=== PATIENT | male | born 1970 | race Caucasian/White ===

== ENCOUNTER 2017-05-16 17:12 | Inpatient (IN) | payer MEDICARE, MEDICAID ==
[2017-05-16] MEDS: Albuterol-Ipratrop 3 mg / 0.5 (3 ml) UD IH SCH ×2 (17:25→17:49)
[2017-05-16] MEDS ORDERED: Albuterol-Ipratrop 3 mg / 0.5 (3 ml) UD ONE ×2 (17:32→20:59)
[2017-05-16 17:38] LABS: BASO # 0.1 K/uL (0.0-0.2); BASO % 0.3 % (0.0-2.0); EOS # 0.2 K/uL (0.0-0.7); EOS % 0.8 % (0.0-4.0); HEMATOCRIT 44.7 % (35.0-51.0); LYMPH # 2.4 K/uL (1.0-4.3); LYMPH % 12.6 % (20.0-40.0); MEAN CELL VOLUME 88.7 fL (80.0-94.0); MEAN CORPUSCULAR HEMOGLOBIN 29.4 pg (27.0-31.0); MEAN CORPUSCULAR HGB CONC 33.2 g/dL (33.0-37.0); MEAN PLATELET VOLUME 8.2 fL (7.2-11.7); MONO # 1.3 K/uL (0.0-0.8); MONO % 6.7 % (0.0-10.0); RED CELL DISTRIBUTION WIDTH 13.9 % (11.5-14.5)
[2017-05-16 18:02] LABS: CHLORIDE 91 mmol/L (98-107); POTASSIUM 3.9 mmol/L (3.6-5.2); SODIUM 143 mmol/L (132-148)
[2017-05-16 18:05] LABS: ALB/GLOB RATIO 1.3 (1.0-2.1); ALKALINE PHOSPHATASE 87 U/L (38-126); ALT/SGPT 38 U/L (21-72); AST/SGOT 22 U/L (17-59); BILIRUBIN,TOTAL 0.6 mg/dL (0.2-1.3); BLOOD UREA NITROGEN 18 mg/dL (9-20); GFR AFRICAN-AMERICAN > 60; GLUCOSE,RANDOM 189 mg/dL (75-110); TOTAL PROTEIN 7.4 g/dL (6.3-8.3)
[2017-05-16 18:06] LABS: CALCIUM 8.5 mg/dl (8.6-10.4)
[2017-05-16] MEDS ORDERED: Magnesium Sulfate 1 gm in D5W 1 GM/100 ML BAG IVPB STA (18:11)
[2017-05-16] MEDS ORDERED: Magnesium Sulfate 1 gm in D5W 1 GM/100 ML BAG IVPB ONE (18:16)
[2017-05-16 18:21] LABS: CARBON DIOXIDE 45 mmol/L (22-30)
[2017-05-16 18:40] LABS: ABG ALLEN TEST POS; ARTERIAL BLOOD HGB O2 SAT 85.3 % (95.0-98.0); CARBOXYHEMOGLOBIN 2.3 % (0.5-1.5); DRAW SITE RBA; HHB 11.3 % (0.0-5.0)
--- NOTE | 2017-05-16 18:54 | C.PDOC ---
Time Seen by Provider: 05/16/17 17:20 Chief Complaint (Nursing): Shortness Of Breath History Per: Patient, Family Onset/Duration Of Symptoms: Days (3) Current Symptoms Are (Timing): Still Present Current Respiratory Medications: See Home Med List Severity: Severe Reports Recently: Hospitalized Additional History Per: Prior Records Past Medical History Reviewed: Historical Data, Nursing Documentation, Vital Signs Vital Signs: Last Vital Signs Temp 98 F 05/16/17 17:16 Pulse 101 H 05/16/17 17:16 Resp 28 H 05/16/17 17:28 BP 117/80 05/16/17 17:16 Pulse Ox 65 L 05/16/17 18:56 - Medical History PMH: Asthma, COPD (on home O2), Diabetes (noncompliant with meds), HTN Other Surgeries: Surgery for skull fracture. - [employer] Procedures INJECT/INFUSE NEC (05/06/14) Family History: States: Unknown Family Hx - Social History Hx Tobacco Use: Yes (quit 2 weeks ago) Hx Alcohol Use: No Hx Substance Use: No - Immunization History Hx Tetanus Toxoid Vaccination: No Hx Influenza Vaccination: No Hx Pneumococcal Vaccination: No Review Of Systems Except As Marked, All Systems Reviewed And Found Negative. Constitutional: Negative for: Fever Cardiovascular: Negative for: Chest Pain, Edema Respiratory: Positive for: Shortness of Breath. Negative for: Hemoptysis Gastrointestinal: Negative for: Vomiting, Abdominal Pain Musculoskeletal: Negative for: Neck Pain, Back Pain, Leg Pain Skin: Negative for: Rash Neurological: Negative for: Weakness, Numbness, Seizures, Altered Mental Status Physical Exam - Physical Exam Appears: Non-toxic, No Acute Distress Skin: Normal Color, Warm, Dry, No Rash Head: Atraumatic, Normacephalic Eye(s): bilateral: PERRL, EOMI Neck: Normal ROM, Supple Cardiovascular: Rhythm Regular Respiratory: Decreased Breath Sounds, Wheezing Gastrointestinal/Abdominal: Soft, No Tenderness Back: No CVA Tenderness Extremity: Normal ROM, No Pedal Edema, No Calf Tenderness Neurological/Psych: Oriented x3, Normal Speech, Normal Cognition, Normal Motor, Normal Sensation ED Course And Treatment - Laboratory Results Result Diagrams: 05/16/17 17:27 05/16/17 17:27 Lab Interpretation: Abnormal Interpretation Of Abnormal: CO2 retention. Hypoxia. ECG: Interpreted By Me, Viewed By Me ECG Rhythm: Sinus Rhythm ECG Interpretation: No Acute Changes Rate From EC O2 Sat by Pulse Oximetry: 65 Pulse Ox Interpretation: Abnormal Interpretation Of Abnormal: Hypoxia on RA - Radiology CXR: Interpreted by Me, Viewed By Me CXR Interpretation: Yes: No Acute Disease Progress Note: Pt placed on BiPAP Progress - Interventions Interventions:: Observation, Oxygen - Medications Administered Inhaled nebulized: Anticholinergic, Beta-2 agonist Intravenous: Corticosteroid, Other (Mg) - Data Reviewed Data Reviewed: Lab, Diagnostic imaging, EKG, Old records - Patient Status Patient status: Partially improved - Critical Care Citical Care: Excluding Proc Time Critical Care Time: 60 minutes - Continuity of Care Discussed patient case with:: Patient, Family-HIPPA compliant, ED Nurse Disposition - Disposition Disposition Time: 19:00 Condition: GUARDED Forms: [employer] (Romanian) - Clinical Impression Clinical Impression: COPD exacerbation Physician Patient Turnover Patient Signed Over To: Evelyn Palmer Handoff Comments: to repeat ABG after BiPAP and admit pt to appropriate level of care.
[2017-05-16 20:46] LABS: ABG ALLEN TEST POS; ARTERIAL BLOOD GAS MODE BiPAP; DRAW SITE RBA
[2017-05-16] MEDS ORDERED: Albuterol-Ipratrop 3 mg / 0.5 (3 ml) UD INH STA (20:52)
[2017-05-16] MEDS ORDERED: cefTRIAXone IV 1 gm in Dextros 50 ML IV STA (20:59)
[2017-05-16] MEDS ORDERED: Azithromycin 500 MG in Sodium Chloride 0.9% 250 ML IVPB STA (20:59)
[2017-05-16] MEDS ORDERED: Albuterol 0.083% Inhal Sol (2.5 mg/3 mL) UD IH PRN ×2 (21:03→21:15)
[2017-05-16] MEDS ORDERED: Azithromycin 500mg/250ML NS 500 MG/250 ML BAG IVPB ONE (21:11)
[2017-05-16] MEDS ORDERED: cefTRIAXone IV 1 gm in Dextros 50 ML IVPB ONE (21:11)
[2017-05-17] MEDS ORDERED: Pneumococcal 23-Valent Vaccine IM ONE (00:31)
[2017-05-17] MEDS ORDERED: Influenza Virus Vaccine 45 mcg/0.5 ml Syr IM ONE (00:31)
[2017-05-17] MEDS ORDERED: guaiFENesin 200 mg/10 ml Syrup UD PO PRN (00:40)
[2017-05-17] MEDS: Albuterol-Ipratrop 3 mg / 0.5 (3 ml) UD INH SCH ×4 (01:39→19:00)
--- NOTE | 2017-05-17 07:38 | RAD ---
PROCEDURE: CHEST RADIOGRAPH, 1 VIEW HISTORY: SOB COMPARISON: Chest radiographs 06/20/2016. FINDINGS: LUNGS: No infiltrate identified bilaterally. Small nodule is seen in the mid left lung field laterally likely representing calcified granuloma. This confirmed on separate chest CT previous performed on 06/25/2016. PLEURA: No pneumothorax or pleural fluid seen. CARDIOVASCULAR: Normal. OSSEOUS STRUCTURES: No significant abnormalities. VISUALIZED UPPER ABDOMEN: Normal. OTHER FINDINGS: None. IMPRESSION: No acute cardiopulmonary disease identified or significant interval change compared 06/20/2016.
[2017-05-17 07:40] LABS: BASO % 0.2 % (0.0-2.0); HEMATOCRIT 41.9 % (35.0-51.0); LYMPH # 0.5 K/uL (1.0-4.3); LYMPH % 3.4 % (20.0-40.0); MEAN CELL VOLUME 87.7 fL (80.0-94.0); MEAN CORPUSCULAR HEMOGLOBIN 28.4 pg (27.0-31.0); MEAN CORPUSCULAR HGB CONC 32.4 g/dL (33.0-37.0); MEAN PLATELET VOLUME 8.2 fL (7.2-11.7); MONO # 0.4 K/uL (0.0-0.8); MONO % 2.6 % (0.0-10.0); PLATELET COUNT 314 K/uL (130-400); RED CELL DISTRIBUTION WIDTH 13.8 % (11.5-14.5); WHITE BLOOD COUNT 15.4 K/uL (4.8-10.8)
[2017-05-17 07:50] LABS: BLOOD UREA NITROGEN 21 mg/dL (9-20); CALCIUM 8.9 mg/dl (8.6-10.4); CHLORIDE 89 mmol/L (98-107); GFR AFRICAN-AMERICAN > 60; GLUCOSE,RANDOM 173 mg/dL (75-110); POTASSIUM 4.5 mmol/L (3.6-5.2); SODIUM 137 mmol/L (132-148)
[2017-05-17 08:23] LABS: CARBON DIOXIDE 42 mmol/L (22-30)
[2017-05-17 09:54] LABS: EOSINOPHIL 1 % (0-4); NEUTROPHIL 88 % (50-75); TOTAL CELLS COUNTED 100
[2017-05-17] MEDS: Enoxaparin 40 mg Syringe SC SCH (10:47)
[2017-05-17] MEDS: Pantoprazole 40 mg EC Tab PO SCH (10:48)
[2017-05-17] MEDS: MethylPREDNISolone 40 mg Vial IVP SCH ×2 (10:48→22:09)
[2017-05-17] MEDS: Fluticasone-Salmeterol 250-50mcg Diskus INH SCH ×2 (13:32→19:00)
[2017-05-17] MEDS: Tiotropium 18 mcg Cap For Inhalation INH SCH (13:33)
--- NOTE | 2017-05-17 21:45 | CP.PCM.CON ---
Past Patient History - Past Medical History & Family History Past Medical History?: Yes - Past Social History Smoking Status: Former Smoker - CARDIAC Hx Hypertension: Yes - PULMONARY Hx Asthma: Yes Hx Chronic Obstructive Pulmonary Disease (COPD): Yes (on home O2) - NEUROLOGICAL Hx Neurological Disorder: No - HEENT Hx HEENT Problems: No - RENAL Hx Chronic Kidney Disease: No - ENDOCRINE/METABOLIC Hx Diabetes Mellitus Type 2: Yes - HEMATOLOGICAL/ONCOLOGICAL Hx Blood Disorders: No - INTEGUMENTARY Hx Dermatological Problems: No - MUSCULOSKELETAL/RHEUMATOLOGICAL Hx Falls: No - GASTROINTESTINAL Hx Gastrointestinal Disorders: No - GENITOURINARY/GYNECOLOGICAL Hx Genitourinary Disorders: No - PSYCHIATRIC Hx Substance Use: No - SURGICAL HISTORY Other/Comment: fx skull sx 1992 - ANESTHESIA Hx Anesthesia: Yes Hx Anesthesia Reactions: No Hx Malignant Hyperthermia: No Meds Allergies/Adverse Reactions: Allergies Allergy/AdvReac Type Severity Reaction Status Date / Time No Known Allergies Allergy Verified 06/20/16 20:39 - Medications Medications: Current Medications Albuterol Sulfate (Albuterol 0.083% Inhal Penny (2.5 Mg/3 Ml) Ud) 2.5 mg IH RQ3 PRN PRN Reason: WHEEZING/SOB Albuterol/Ipratropium (Duoneb 3 Mg/0.5 Mg (3 Ml) Ud) 3 ml INH RQ6 [facility] Last Admin: 05/17/17 19:00 Dose: 3 ml Enoxaparin Sodium (Lovenox) 40 mg SC DAILY [facility] Last Admin: 05/17/17 10:47 Dose: 40 mg Guaifenesin (Robitussin) 200 mg PO Q4H PRN PRN Reason: Cough and congestion Last Admin: 05/17/17 10:50 Dose: 200 mg Lisinopril (Zestril) 2.5 mg PO DAILY [facility] Last Admin: 05/17/17 10:53 Dose: 2.5 mg Metformin HCl (Glucophage) 500 mg PO BID [facility] Last Admin: 05/17/17 18:23 Dose: 500 mg Methylprednisolone (Solu-Medrol) 40 mg IVP Q12 [facility] Last Admin: 05/17/17 10:48 Dose: 40 mg Montelukast Sodium (Singulair) 10 mg PO HS [facility] Nicotine (Nicoderm Cq) 1 patch TD DAILY [facility] Last Admin: 05/17/17 10:49 Dose: 1 patch Pantoprazole Sodium (Protonix Ec Tab) 40 mg PO DAILY [facility] Last Admin: 05/17/17 10:48 Dose: 40 mg Roflumilast (Daliresp) 500 mcg PO DAILY [facility] Last Admin: 05/17/17 10:48 Dose: 500 mcg Fluticasone/Salmeterol (Advair Diskus 250/50) 1 puff INH RQ12 [facility] Last Admin: 05/17/17 19:00 Dose: 1 puff Tiotropium [place] (Spiriva) 18 mcg INH RQ24 [facility] Last Admin: 05/17/17 13:33 Dose: Not Given Results - Vital Signs Recent Vital Signs: Last Vital Signs Temp 98.3 F 05/17/17 15:00 Pulse 93 H 05/17/17 15:00 Resp 20 05/17/17 15:00 BP 114/72 05/17/17 15:00 Pulse Ox 95 05/17/17 15:00 - Labs Result Diagrams: 05/17/17 07:30 05/17/17 07:30 Labs: Laboratory Results - last 24 hr 05/17/17 05/17/17 05/17/17 06:06 07:30 07:30 WBC 15.4 H RBC 4.77 Hgb 13.6 Hct 41.9 MCV 87.7 MCH 28.4 MCHC 32.4 L RDW 13.8 Plt Count 314 MPV 8.2 Neut % (Auto) 93.8 H Lymph % (Auto) 3.4 L [place] % (Auto) 2.6 Eos % (Auto) 0.0 Baso % (Auto) 0.2 Neut # 14.5 H Lymph # 0.5 L [place] # 0.4 Eos # 0.0 Baso # 0.0 Neutrophils % (Manual) 88 H Band Neutrophils % 5 H Lymphocytes % (Manual) 2 L Monocytes % (Manual) 4 Eosinophils % (Manual) 1 Platelet Estimate Normal RBC Morphology Normal Sodium 137 Potassium 4.5 Chloride 89 L Carbon Dioxide 42 H* Anion Gap 12 BUN 21 H Creatinine 0.5 L Est GFR ( Amer) > 60 Est GFR (Non-Af Amer) > 60 POC Glucose (mg/dL) 165 H Random Glucose 173 H Calcium 8.9 05/17/17 16:27 WBC RBC Hgb Hct MCV MCH MCHC RDW Plt Count MPV Neut % (Auto) Lymph % (Auto) [place] % (Auto) Eos % (Auto) Baso % (Auto) Neut # Lymph # [place] # Eos # Baso # Neutrophils % (Manual) Band Neutrophils % Lymphocytes % (Manual) Monocytes % (Manual) Eosinophils % (Manual) Platelet Estimate RBC Morphology Sodium Potassium Chloride Carbon Dioxide Anion Gap BUN Creatinine Est GFR ( Amer) Est GFR (Non-Af Amer) POC Glucose (mg/dL) 236 H Random Glucose Calcium
--- NOTE | 2017-05-17 23:50 | CP.PCM.HP ---
Past Patient History - Past Medical History & Family History Past Medical History?: Yes - Past Social History Smoking Status: Former Smoker - CARDIAC Hx Hypertension: Yes - PULMONARY Hx Asthma: Yes Hx Chronic Obstructive Pulmonary Disease (COPD): Yes (on home O2) - NEUROLOGICAL Hx Neurological Disorder: No - HEENT Hx HEENT Problems: No - RENAL Hx Chronic Kidney Disease: No - ENDOCRINE/METABOLIC Hx Diabetes Mellitus Type 2: Yes - HEMATOLOGICAL/ONCOLOGICAL Hx Blood Disorders: No - INTEGUMENTARY Hx Dermatological Problems: No - MUSCULOSKELETAL/RHEUMATOLOGICAL Hx Falls: No - GASTROINTESTINAL Hx Gastrointestinal Disorders: No - GENITOURINARY/GYNECOLOGICAL Hx Genitourinary Disorders: No - PSYCHIATRIC Hx Substance Use: No - SURGICAL HISTORY Other/Comment: fx skull sx 1991 - ANESTHESIA Hx Anesthesia: Yes Hx Anesthesia Reactions: No Hx Malignant Hyperthermia: No Meds Allergies/Adverse Reactions: Allergies Allergy/AdvReac Type Severity Reaction Status Date / Time No Known Allergies Allergy Verified 06/20/16 20:39 Results - Vital Signs Recent Vital Signs: Last Vital Signs Temp 98.3 F 05/17/17 15:00 Pulse 93 H 05/17/17 15:00 Resp 20 05/17/17 15:00 BP 114/72 05/17/17 15:00 Pulse Ox 95 05/17/17 15:00 - Labs Result Diagrams: 05/17/17 07:30 05/17/17 07:30 Labs: Laboratory Results - last 24 hr 05/17/17 05/17/17 05/17/17 06:06 07:30 07:30 WBC 15.4 H RBC 4.77 Hgb 13.6 Hct 41.9 MCV 87.7 MCH 28.4 MCHC 32.4 L RDW 13.8 Plt Count 314 MPV 8.2 Neut % (Auto) 93.8 H Lymph % (Auto) 3.4 L [place] % (Auto) 2.6 Eos % (Auto) 0.0 Baso % (Auto) 0.2 Neut # 14.5 H Lymph # 0.5 L [place] # 0.4 Eos # 0.0 Baso # 0.0 Neutrophils % (Manual) 88 H Band Neutrophils % 5 H Lymphocytes % (Manual) 2 L Monocytes % (Manual) 4 Eosinophils % (Manual) 1 Platelet Estimate Normal RBC Morphology Normal Sodium 137 Potassium 4.5 Chloride 89 L Carbon Dioxide 42 H* Anion Gap 12 BUN 21 H Creatinine 0.5 L Est GFR ( Amer) > 60 Est GFR (Non-Af Amer) > 60 POC Glucose (mg/dL) 165 H Random Glucose 173 H Calcium 8.9 05/17/17 05/17/17 16:27 21:09 WBC RBC Hgb Hct MCV MCH MCHC RDW Plt Count MPV Neut % (Auto) Lymph % (Auto) [place] % (Auto) Eos % (Auto) Baso % (Auto) Neut # Lymph # [place] # Eos # Baso # Neutrophils % (Manual) Band Neutrophils % Lymphocytes % (Manual) Monocytes % (Manual) Eosinophils % (Manual) Platelet Estimate RBC Morphology Sodium Potassium Chloride Carbon Dioxide Anion Gap BUN Creatinine Est GFR ( Amer) Est GFR (Non-Af Amer) POC Glucose (mg/dL) 236 H 298 H Random Glucose Calcium
[2017-05-18] MEDS: Albuterol-Ipratrop 3 mg / 0.5 (3 ml) UD INH SCH ×4 (01:11→19:17)
[2017-05-18] MEDS: Enoxaparin 40 mg Syringe SC SCH (09:54)
[2017-05-18] MEDS: Pantoprazole 40 mg EC Tab PO SCH (09:55)
[2017-05-18] MEDS: MethylPREDNISolone 40 mg Vial IVP SCH ×2 (09:55→21:22)
[2017-05-18] MEDS: Tiotropium 18 mcg Cap For Inhalation INH SCH (10:36)
[2017-05-18] MEDS: Fluticasone-Salmeterol 250-50mcg Diskus INH SCH ×2 (10:36→19:17)
--- NOTE | 2017-05-18 11:07 | HP ---
CHIEF COMPLAINT: Shortness of breath. HISTORY OF PRESENT ILLNESS: This is a 47-year-old male with history of COPD for few years who is compliant with his diet, medication and followup. He is chronically sick with home oxygen, home nebulizer treatment and according to the patient, he has been traveling recently and he came to emergency room on the day of admission with increasing shortness of breath, cough, congestion, wheezing, generalized weakness, tiredness, anorexia, malaise, and fatigue. He has thick sputum production which is slimy and yellow, unable to bring up. In the ER, he was found to be in the acute respiratory failure with high pCO2 and the patient was admitted. There is no history of abdominal pain, nausea, vomiting, or diarrhea. He has cough and congestion. He has wheezing. He denies any history of wheezing, itchy eyes, or itchy nose. He denies any history of allergies. He denies any exposure to pets. He denies any history of jaw pain or leg pain. He denies any history of tingling, numbness, or paresthesias of the feet. The patient denies any history of headache, dizziness, or vertigo. The patient denies any history of change in vision. He denies any history of diplopia. ALLERGIES: HE DENIED ANY HISTORY OF ALLERGIES. PAST MEDICAL HISTORY: COPD. SOCIAL HISTORY: Ex-smoker. Social ETOH user. He smoked up until 2 weeks ago. CURRENT MEDICATIONS: Prednisone, metformin, Spiriva, Daliresp, Protonix, Nicoderm CQ, Singulair, Lisinopril, Advair and Ventolin HFA. PHYSICAL EXAMINATION GENERAL: He is a middle aged male in moderate respiratory distress. VITAL SIGNS: Blood pressure of 109/68, pulse of 68, respiratory rate of 81 and temperature of 98. SKIN: Warm. Good turgor. No purpura. No petechiae. No ecchymosis. HEENT: Atraumatic and normocephalic. Negative pallor. Negative jaundice. Extraocular movements are intact. NECK: Supple. Flat neck veins. No JVD. No lymph node. No thyromegaly. No carotid bruits. CHEST: Chest wall bilaterally symmetrical expansion. LUNGS: Bilateral inspiratory and expiratory rhonchi. Decreased air entry. No rales. No rhonchi. CARDIOVASCULAR SYSTEM: S1 and S2 regular. No heaves noted. ABDOMEN: Soft and nontender. Bowel sounds are positive. RECTAL: Enlarged prostate. EXTREMITIES: No clubbing, cyanosis or edema. CENTRAL NERVOUS SYSTEM: Awake, alert and oriented x3. Cranial nerves II to XII are normal. Power 5/5 x4. ASSESSMENT: 1. Acute exacerbation of chronic obstructive pulmonary disease, acute on chronic hypercarbic respiratory failure. 2. Tracheobronchial tree ,rule out pneumonia. 3. Diabetes. 4. Hypertension. PLAN: Admit and detail orders written. Seen and examined. Mike Pryor MD
[2017-05-19] MEDS: Albuterol-Ipratrop 3 mg / 0.5 (3 ml) UD INH SCH ×4 (01:27→20:50)
[2017-05-19] MEDS: Enoxaparin 40 mg Syringe SC SCH (10:10)
[2017-05-19] MEDS: MethylPREDNISolone 40 mg Vial IVP SCH ×2 (10:11→21:19)
[2017-05-19] MEDS: Pantoprazole 40 mg EC Tab PO SCH (10:12)
[2017-05-19] MEDS: Fluticasone-Salmeterol 250-50mcg Diskus INH SCH ×2 (10:50→20:50)
[2017-05-19] MEDS: Tiotropium 18 mcg Cap For Inhalation INH SCH (10:51)
[2017-05-19 14:00] LABS: BASO # 0.1 K/uL (0.0-0.2); BASO % 0.3 % (0.0-2.0); HEMATOCRIT 44.7 % (35.0-51.0); LYMPH # 0.7 K/uL (1.0-4.3); LYMPH % 3.1 % (20.0-40.0); MEAN CELL VOLUME 87.5 fL (80.0-94.0); MEAN PLATELET VOLUME 8.3 fL (7.2-11.7); MONO # 0.7 K/uL (0.0-0.8); MONO % 3.2 % (0.0-10.0); PLATELET COUNT 360 K/uL (130-400); WHITE BLOOD COUNT 21.5 K/uL (4.8-10.8)
[2017-05-19 14:16] LABS: BLOOD UREA NITROGEN 27 mg/dL (9-20); CALCIUM 9.4 mg/dl (8.6-10.4); CARBON DIOXIDE 31 mmol/L (22-30); CHLORIDE 88 mmol/L (98-107); GFR AFRICAN-AMERICAN > 60; GLUCOSE,RANDOM 284 mg/dL (75-110); POTASSIUM 4.1 mmol/L (3.6-5.2); SODIUM 136 mmol/L (132-148)
[2017-05-19 14:42] LABS: LARGE PLATELETS PRESENT; NEUTROPHIL 91 % (50-75); TOTAL CELLS COUNTED 100
--- NOTE | 2017-05-19 15:39 | CP.PCM.PN ---
Subjective - Date & Time of Evaluation Date of Evaluation: 05/19/17 Time of Evaluation: 10:30 - Subjective Subjective: Patient seen and examined Breathing and cough much improved Afebrile Denies any chest pain Complaining of dyspnea on exertion Objective - Vital Signs/Intake and Output Vital Signs (last 24 hours): Temp Pulse Resp BP Pulse Ox 98.1 F 102 H 18 159/73 H 92 L 05/19/17 07:20 05/19/17 08:19 05/19/17 07:20 05/19/17 07:20 05/19/17 07:20 Intake and Output: 05/19/17 05/19/17 06:59 18:59 Intake Total 500 Balance 500 - Medications Medications: Current Medications Albuterol Sulfate (Albuterol 0.083% Inhal Penny (2.5 Mg/3 Ml) Ud) 2.5 mg IH RQ3 PRN PRN Reason: WHEEZING/SOB Albuterol/Ipratropium (Duoneb 3 Mg/0.5 Mg (3 Ml) Ud) 3 ml INH RQ6 [facility] Last Admin: 05/19/17 13:14 Dose: 3 ml Enoxaparin Sodium (Lovenox) 40 mg SC DAILY [facility] Last Admin: 05/19/17 10:10 Dose: 40 mg Guaifenesin (Robitussin) 200 mg PO Q4H PRN PRN Reason: Cough and congestion Last Admin: 05/17/17 10:50 Dose: 200 mg Lisinopril (Zestril) 2.5 mg PO DAILY [facility] Last Admin: 05/19/17 10:12 Dose: 2.5 mg Metformin HCl (Glucophage) 500 mg PO BID [facility] Last Admin: 05/19/17 10:11 Dose: 500 mg Methylprednisolone (Solu-Medrol) 40 mg IVP Q12 [facility] Last Admin: 05/19/17 10:11 Dose: 40 mg Montelukast Sodium (Singulair) 10 mg PO HS [facility] Last Admin: 05/18/17 21:22 Dose: 10 mg Nicotine (Nicoderm Cq) 1 patch TD DAILY [facility] Last Admin: 05/19/17 10:12 Dose: 1 patch Pantoprazole Sodium (Protonix Ec Tab) 40 mg PO DAILY [facility] Last Admin: 05/19/17 10:12 Dose: 40 mg Roflumilast (Daliresp) 500 mcg PO DAILY [facility] Last Admin: 05/19/17 10:12 Dose: 500 mcg Fluticasone/Salmeterol (Advair Diskus 250/50) 1 puff INH RQ12 [facility] Last Admin: 05/19/17 10:50 Dose: 1 puff Tiotropium [place] (Spiriva) 18 mcg INH RQ24 [facility] Last Admin: 05/19/17 10:51 Dose: 18 mcg - Labs Labs: 05/19/17 13:51 05/19/17 13:51 - Constitutional Appears: No Acute Distress - Head Exam Head Exam: ATRAUMATIC, NORMOCEPHALIC - ENT Exam ENT Exam: Mucous Membranes Moist - Neck Exam Neck Exam: Normal Inspection - Respiratory Exam Respiratory Exam: Decreased Breath Sounds - Cardiovascular Exam Cardiovascular Exam: REGULAR RHYTHM - GI/Abdominal Exam GI & Abdominal Exam: Soft, Normal Bowel Sounds - Extremities Exam Extremities Exam: Full ROM, Normal Inspection - Neurological Exam Neurological Exam: Alert, Oriented x3 Assessment and Plan (1) COPD exacerbation Assessment & Plan: Taper steroids Continue nebulizer treatment ABG room air Will need pulmonary function test Status: Acute
[2017-05-19 16:02] VITALS: RESP 20
--- NOTE | 2017-05-20 00:04 | CP.PCM.PN ---
Subjective - Date & Time of Evaluation Date of Evaluation: 05/18/17 - Subjective Subjective: LESS SOB, less cough, no fever, no chest pain Objective - Vital Signs/Intake and Output Vital Signs (last 24 hours): Temp Pulse Resp BP Pulse Ox 98.1 F 99 H 20 112/67 96 05/19/17 15:00 05/19/17 21:03 05/19/17 15:00 05/19/17 16:55 05/19/17 15:00 Intake and Output: 05/19/17 05/20/17 18:59 06:59 Intake Total 500 Balance 500 - Medications Medications: Current Medications Albuterol Sulfate (Albuterol 0.083% Inhal Penny (2.5 Mg/3 Ml) Ud) 2.5 mg IH RQ3 PRN PRN Reason: WHEEZING/SOB Albuterol/Ipratropium (Duoneb 3 Mg/0.5 Mg (3 Ml) Ud) 3 ml INH RQ6 [facility] Last Admin: 05/19/17 20:50 Dose: 3 ml Enoxaparin Sodium (Lovenox) 40 mg SC DAILY [facility] Last Admin: 05/19/17 10:10 Dose: 40 mg Guaifenesin (Robitussin) 200 mg PO Q4H PRN PRN Reason: Cough and congestion Last Admin: 05/17/17 10:50 Dose: 200 mg Lisinopril (Zestril) 2.5 mg PO DAILY [facility] Last Admin: 05/19/17 10:12 Dose: 2.5 mg Metformin HCl (Glucophage) 500 mg PO BID [facility] Last Admin: 05/19/17 17:04 Dose: 500 mg Methylprednisolone (Solu-Medrol) 40 mg IVP Q12 [facility] Last Admin: 05/19/17 21:19 Dose: 40 mg Montelukast Sodium (Singulair) 10 mg PO HS [facility] Last Admin: 05/19/17 21:20 Dose: 10 mg Nicotine (Nicoderm Cq) 1 patch TD DAILY [facility] Last Admin: 05/19/17 10:12 Dose: 1 patch Pantoprazole Sodium (Protonix Ec Tab) 40 mg PO DAILY [facility] Last Admin: 05/19/17 10:12 Dose: 40 mg Roflumilast (Daliresp) 500 mcg PO DAILY [facility] Last Admin: 05/19/17 10:12 Dose: 500 mcg Fluticasone/Salmeterol (Advair Diskus 250/50) 1 puff INH RQ12 [facility] Last Admin: 05/19/17 20:50 Dose: 1 puff Tiotropium [place] (Spiriva) 18 mcg INH RQ24 [facility] Last Admin: 05/19/17 10:51 Dose: 18 mcg - Labs Labs: 05/19/17 13:51 05/19/17 13:51 - Constitutional Appears: Non-toxic, No Acute Distress, Chronically Ill - Head Exam Head Exam: ATRAUMATIC, NORMAL INSPECTION, NORMOCEPHALIC - Eye Exam Eye Exam: EOMI, Normal appearance Pupil Exam: NORMAL ACCOMODATION - ENT Exam ENT Exam: Mucous Membranes Moist, Normal Exam - Neck Exam Neck Exam: Normal Inspection - Respiratory Exam Respiratory Exam: Prolonged Expiratory Phase, Rhonchi, NORMAL BREATHING PATTERN - Cardiovascular Exam Cardiovascular Exam: REGULAR RHYTHM, +S1, +S2 - GI/Abdominal Exam GI & Abdominal Exam: Soft, Normal Bowel Sounds - Rectal Exam Rectal Exam: NORMAL INSPECTION - Extremities Exam Extremities Exam: Full ROM, Normal Capillary Refill, Normal Inspection - Back Exam Back Exam: NORMAL INSPECTION - Neurological Exam Neurological Exam: Alert, Awake, CN II-XII Intact, Normal Gait, Oriented x3 Neuro motor strength exam: Left Upper Extremity: 5, Right Upper Extremity: 5, Left Lower Extremity: 5, Right Lower Extremity: 5 - Psychiatric Exam Psychiatric exam: Normal Affect - Skin Skin Exam: Dry Assessment and Plan (1) COPD exacerbation Status: Acute (2) Back pain Status: Chronic (3) Diabetes Status: Chronic
--- NOTE | 2017-05-20 00:06 | CP.PCM.PN ---
Subjective - Date & Time of Evaluation Date of Evaluation: 05/19/17 - Subjective Subjective: cough, congestion, less sob, wheezing, no chest pain, no fever Objective - Vital Signs/Intake and Output Vital Signs (last 24 hours): Temp Pulse Resp BP Pulse Ox 98.1 F 99 H 20 112/67 96 05/19/17 15:00 05/19/17 21:03 05/19/17 15:00 05/19/17 16:55 05/19/17 15:00 Intake and Output: 05/19/17 05/20/17 18:59 06:59 Intake Total 500 Balance 500 - Medications Medications: Current Medications Albuterol Sulfate (Albuterol 0.083% Inhal [place] (2.5 Mg/3 Ml) Ud) 2.5 mg IH RQ3 PRN PRN Reason: WHEEZING/SOB Albuterol/Ipratropium (Duoneb 3 Mg/0.5 Mg (3 Ml) Ud) 3 ml INH RQ6 [facility] Last Admin: 05/19/17 20:50 Dose: 3 ml Enoxaparin Sodium (Lovenox) 40 mg SC DAILY [facility] Last Admin: 05/19/17 10:10 Dose: 40 mg Guaifenesin (Robitussin) 200 mg PO Q4H PRN PRN Reason: Cough and congestion Last Admin: 05/17/17 10:50 Dose: 200 mg Lisinopril (Zestril) 2.5 mg PO DAILY [facility] Last Admin: 05/19/17 10:12 Dose: 2.5 mg Metformin HCl (Glucophage) 500 mg PO BID [facility] Last Admin: 05/19/17 17:04 Dose: 500 mg Methylprednisolone (Solu-Medrol) 40 mg IVP Q12 [facility] Last Admin: 05/19/17 21:19 Dose: 40 mg Montelukast Sodium (Singulair) 10 mg PO HS [facility] Last Admin: 05/19/17 21:20 Dose: 10 mg Nicotine (Nicoderm Cq) 1 patch TD DAILY [facility] Last Admin: 05/19/17 10:12 Dose: 1 patch Pantoprazole Sodium (Protonix Ec Tab) 40 mg PO DAILY [facility] Last Admin: 05/19/17 10:12 Dose: 40 mg Roflumilast (Daliresp) 500 mcg PO DAILY [facility] Last Admin: 05/19/17 10:12 Dose: 500 mcg Fluticasone/Salmeterol (Advair Diskus 250/50) 1 puff INH RQ12 [facility] Last Admin: 05/19/17 20:50 Dose: 1 puff Tiotropium [place] (Spiriva) 18 mcg INH RQ24 [facility] Last Admin: 05/19/17 10:51 Dose: 18 mcg - Labs Labs: 05/19/17 13:51 05/19/17 13:51 - Constitutional Appears: Non-toxic, No Acute Distress, Chronically Ill - Head Exam Head Exam: ATRAUMATIC, NORMAL INSPECTION, NORMOCEPHALIC - Eye Exam Eye Exam: Normal appearance Pupil Exam: NORMAL ACCOMODATION, PERRL - ENT Exam ENT Exam: Mucous Membranes Moist - Neck Exam Neck Exam: Normal Inspection - Respiratory Exam Respiratory Exam: Rales, Rhonchi, Respiratory Distress, NORMAL BREATHING PATTERN - Cardiovascular Exam Cardiovascular Exam: Tachycardia, REGULAR RHYTHM, +S1, +S2 - GI/Abdominal Exam GI & Abdominal Exam: Soft, Normal Bowel Sounds - Rectal Exam Rectal Exam: NORMAL INSPECTION - Back Exam Back Exam: NORMAL INSPECTION - Neurological Exam Neurological Exam: Alert, Awake Assessment and Plan (1) COPD exacerbation Status: Acute (2) Back pain Status: Chronic (3) Diabetes Status: Chronic
[2017-05-20] MEDS: Albuterol-Ipratrop 3 mg / 0.5 (3 ml) UD INH SCH ×3 (01:40→13:13)
[2017-05-20 06:35] LABS: BASO % 0.1 % (0.0-2.0); HEMATOCRIT 41.8 % (35.0-51.0); LYMPH # 0.7 K/uL (1.0-4.3); LYMPH % 3.5 % (20.0-40.0); MEAN CELL VOLUME 86.6 fL (80.0-94.0); MEAN CORPUSCULAR HEMOGLOBIN 28.6 pg (27.0-31.0); MEAN PLATELET VOLUME 8.4 fL (7.2-11.7); MONO # 0.9 K/uL (0.0-0.8); MONO % 4.2 % (0.0-10.0); NRBC % 0.1 % (0.0-2.0); PLATELET COUNT 350 K/uL (130-400); WHITE BLOOD COUNT 21.1 K/uL (4.8-10.8)
[2017-05-20] MEDS: Tiotropium 18 mcg Cap For Inhalation INH SCH (07:47)
[2017-05-20] MEDS: Fluticasone-Salmeterol 250-50mcg Diskus INH SCH (07:47)
[2017-05-20 08:57] LABS: NEUTROPHIL 90 % (50-75); TOTAL CELLS COUNTED 100
[2017-05-20] MEDS: Enoxaparin 40 mg Syringe SC SCH (10:07)
[2017-05-20] MEDS: MethylPREDNISolone 40 mg Vial IVP SCH (10:07)
[2017-05-20] MEDS: Pantoprazole 40 mg EC Tab PO SCH (10:08)
[2017-05-20 10:32] LABS: ARTERIAL BLOOD HGB O2 SAT 91.9 % (95.0-98.0); DRAW SITE RB; HHB 4.9 % (0.0-5.0); METHEMOGLOBIN 1.2 % (0.0-3.0)
--- NOTE | 2017-05-20 14:33 | CP.PCM.PN ---
Subjective - Date & Time of Evaluation Date of Evaluation: 05/20/17 Time of Evaluation: 10:45 - Subjective Subjective: patient seen an d examined today , sob an d congestion improved, denies any abdominal pain, N/V/d , fever, chills oob ambulating the mancera way without oxygen and spo2 remains stable - 95 % and without sob Objective - Vital Signs/Intake and Output Vital Signs (last 24 hours): Temp Pulse Resp BP Pulse Ox 98.1 F 62 20 108/68 96 05/20/17 07:00 05/20/17 07:00 05/20/17 07:00 05/20/17 07:00 05/20/17 07:00 Intake and Output: 05/20/17 05/20/17 06:59 18:59 Intake Total 1000 Balance 1000 - Medications Medications: Current Medications Albuterol Sulfate (Albuterol 0.083% Inhal Penny (2.5 Mg/3 Ml) Ud) 2.5 mg IH RQ3 PRN PRN Reason: WHEEZING/SOB Albuterol/Ipratropium (Duoneb 3 Mg/0.5 Mg (3 Ml) Ud) 3 ml INH RQ6 [facility] Last Admin: 05/20/17 13:13 Dose: 3 ml Enoxaparin Sodium (Lovenox) 40 mg SC DAILY [facility] Last Admin: 05/20/17 10:07 Dose: 40 mg Guaifenesin (Robitussin) 200 mg PO Q4H PRN PRN Reason: Cough and congestion Last Admin: 05/17/17 10:50 Dose: 200 mg Lisinopril (Zestril) 2.5 mg PO DAILY [facility] Last Admin: 05/20/17 10:08 Dose: 2.5 mg Metformin HCl (Glucophage) 500 mg PO BID [facility] Last Admin: 05/20/17 10:08 Dose: 500 mg Methylprednisolone (Solu-Medrol) 40 mg IVP Q12 [facility] Last Admin: 05/20/17 10:07 Dose: 40 mg Montelukast Sodium (Singulair) 10 mg PO HS [facility] Last Admin: 05/19/17 21:20 Dose: 10 mg Nicotine (Nicoderm Cq) 1 patch TD DAILY [facility] Last Admin: 05/20/17 10:08 Dose: 1 patch Pantoprazole Sodium (Protonix Ec Tab) 40 mg PO DAILY [facility] Last Admin: 05/20/17 10:08 Dose: 40 mg Roflumilast (Daliresp) 500 mcg PO DAILY [facility] Last Admin: 05/20/17 10:08 Dose: 500 mcg Fluticasone/Salmeterol (Advair Diskus 250/50) 1 puff INH RQ12 [facility] Last Admin: 05/20/17 07:47 Dose: 1 puff Tiotropium [place] (Spiriva) 18 mcg INH RQ24 [facility] Last Admin: 05/20/17 07:47 Dose: 18 mcg - Labs Labs: 05/20/17 06:18 05/19/17 13:51 - Constitutional Appears: Well, No Acute Distress - Respiratory Exam Respiratory Exam: Decreased Breath Sounds, NORMAL BREATHING PATTERN - Cardiovascular Exam Cardiovascular Exam: REGULAR RHYTHM, +S1, +S2 Assessment and Plan - Assessment and Plan (Free Text) Assessment: 47 yr old male admitted for exc. COPD Pt clinically improved with steroids an d neb. t x Patient oob ambulating the mancera way without oxygen and saturation still remains stable 95- 96% seen by Dr. Abraham cleared for discharge home today from pulmonary standpoint and f/u with Dr. Abraham office in 1 week D/W with Dr. pryor, cleared for discharge home otday and f/u with Dr. Pryor office in 1 week Discharge plan discussed with patient who understands and agrees with plan Patient instructed to returns to ED if symptoms returns
--- NOTE | 2017-05-20 15:36 | CP.PCM.PN ---
Subjective - Date & Time of Evaluation Date of Evaluation: 05/20/17 Time of Evaluation: 10:30 - Subjective Subjective: Patient seen and examined. Breathing and cough much improved On home oxygen Afebrile Objective - Vital Signs/Intake and Output Vital Signs (last 24 hours): Temp Pulse Resp BP Pulse Ox 98.1 F 62 20 108/68 96 05/20/17 07:00 05/20/17 07:00 05/20/17 07:00 05/20/17 07:00 05/20/17 07:00 Intake and Output: 05/20/17 05/20/17 06:59 18:59 Intake Total 1000 Balance 1000 - Medications Medications: Current Medications Albuterol Sulfate (Albuterol 0.083% Inhal Penny (2.5 Mg/3 Ml) Ud) 2.5 mg IH RQ3 PRN PRN Reason: WHEEZING/SOB Albuterol/Ipratropium (Duoneb 3 Mg/0.5 Mg (3 Ml) Ud) 3 ml INH RQ6 [facility] Last Admin: 05/20/17 13:13 Dose: 3 ml Enoxaparin Sodium (Lovenox) 40 mg SC DAILY [facility] Last Admin: 05/20/17 10:07 Dose: 40 mg Guaifenesin (Robitussin) 200 mg PO Q4H PRN PRN Reason: Cough and congestion Last Admin: 05/17/17 10:50 Dose: 200 mg Lisinopril (Zestril) 2.5 mg PO DAILY [facility] Last Admin: 05/20/17 10:08 Dose: 2.5 mg Metformin HCl (Glucophage) 500 mg PO BID [facility] Last Admin: 05/20/17 10:08 Dose: 500 mg Methylprednisolone (Solu-Medrol) 40 mg IVP Q12 [facility] Last Admin: 05/20/17 10:07 Dose: 40 mg Montelukast Sodium (Singulair) 10 mg PO HS [facility] Last Admin: 05/19/17 21:20 Dose: 10 mg Nicotine (Nicoderm Cq) 1 patch TD DAILY [facility] Last Admin: 05/20/17 10:08 Dose: 1 patch Pantoprazole Sodium (Protonix Ec Tab) 40 mg PO DAILY [facility] Last Admin: 05/20/17 10:08 Dose: 40 mg Roflumilast (Daliresp) 500 mcg PO DAILY [facility] Last Admin: 05/20/17 10:08 Dose: 500 mcg Fluticasone/Salmeterol (Advair Diskus 250/50) 1 puff INH RQ12 [facility] Last Admin: 05/20/17 07:47 Dose: 1 puff Tiotropium [place] (Spiriva) 18 mcg INH RQ24 [facility] Last Admin: 05/20/17 07:47 Dose: 18 mcg - Labs Labs: 05/20/17 06:18 05/19/17 13:51 - Head Exam Head Exam: ATRAUMATIC, NORMOCEPHALIC - Eye Exam Eye Exam: Normal appearance - ENT Exam ENT Exam: Mucous Membranes Moist - Neck Exam Neck Exam: Normal Inspection - Respiratory Exam Respiratory Exam: Clear to Ausculation Bilateral - Cardiovascular Exam Cardiovascular Exam: REGULAR RHYTHM - GI/Abdominal Exam GI & Abdominal Exam: Soft, Normal Bowel Sounds - Extremities Exam Extremities Exam: Full ROM, Normal Inspection - Neurological Exam Neurological Exam: Alert, Oriented x3 Assessment and Plan (1) COPD exacerbation Assessment & Plan: Change IV Solu-Medrol to by mouth prednisone Continue nebulizer treatment spiriva Follow-up in the office for PFTs Status: Acute
[2017-05-20 18:14] VITALS: BP 127/60; PULSE 92; TEMP 98.5; O2SAT 97
--- NOTE | 2017-05-20 23:23 | CP.PCM.DIS ---
Provider - Provider Date of Admission: 05/16/17 21:03 Attending physician: Mike Pryor MD Diagnosis - Discharge Diagnosis (1) COPD exacerbation Status: Acute (2) Back pain Status: Chronic (3) Diabetes Status: Chronic Hospital Course - Lab Results Lab Results: Micro Results 05/16/17 21:30 Blood Blood Culture - Preliminary NO GROWTH AFTER 3 DAYS Most Recent Lab Values WBC 21.1 K/uL (4.8-10.8) H 05/20/17 06:18 RBC 4.83 Mil/uL (4.40-5.90) 05/20/17 06:18 Hgb 13.8 g/dL (12.0-18.0) 05/20/17 06:18 Hct 41.8 % (35.0-51.0) 05/20/17 06:18 MCV 86.6 fL (80.0-94.0) 05/20/17 06:18 MCH 28.6 pg (27.0-31.0) 05/20/17 06:18 MCHC 33.0 g/dL (33.0-37.0) 05/20/17 06:18 RDW 14.0 % (11.5-14.5) 05/20/17 06:18 Plt Count 350 K/uL (130-400) 05/20/17 06:18 MPV 8.4 fL (7.2-11.7) 05/20/17 06:18 Neut % (Auto) 92.2 % (50.0-75.0) H 05/20/17 06:18 Lymph % (Auto) 3.5 % (20.0-40.0) L 05/20/17 06:18 [place] % (Auto) 4.2 % (0.0-10.0) 05/20/17 06:18 Eos % (Auto) 0.0 % (0.0-4.0) 05/20/17 06:18 Baso % (Auto) 0.1 % (0.0-2.0) 05/20/17 06:18 Neut # 19.4 K/uL (1.8-7.0) H 05/20/17 06:18 Lymph # 0.7 K/uL (1.0-4.3) L 05/20/17 06:18 [place] # 0.9 K/uL (0.0-0.8) H 05/20/17 06:18 Eos # 0.0 K/uL (0.0-0.7) 05/20/17 06:18 Baso # 0.0 K/uL (0.0-0.2) 05/20/17 06:18 Neutrophils % (Manual) 90 % (50-75) H 05/20/17 06:18 Band Neutrophils % 1 % (0-2) 05/20/17 06:18 Lymphocytes % (Manual) 6 % (20-40) L 05/20/17 06:18 Monocytes % (Manual) 3 % (0-10) 05/20/17 06:18 Eosinophils % (Manual) 1 % (0-4) 05/17/17 07:30 Platelet Estimate Normal (NORMAL) 05/20/17 06:18 Large Platelets Present 05/19/17 13:51 RBC Morphology Normal 05/20/17 06:18 Anisocytosis (manual) Slight 05/19/17 13:51 Puncture Site Rb 05/20/17 10:28 pCO2 47 mm/Hg (35-45) H 05/20/17 10:28 pO2 63 mm/Hg (80-100) L 05/20/17 10:28 HCO3 33.2 mmol/L (21-28) H 05/20/17 10:28 ABG pH 7.49 (7.35-7.45) H 05/20/17 10:28 ABG Total CO2 37.2 mmol/L (22-28) H 05/20/17 10:28 ABG O2 Saturation 94.9 % (95-98) L 05/20/17 10:28 ABG Base Excess 10.8 mmol/L (-2.0-3.0) H 05/20/17 10:28 ABG Hemoglobin 15.1 g/dL (11.7-17.4) 05/20/17 10:28 ABG Carboxyhemoglobin 2.0 % (0.5-1.5) H 05/20/17 10:28 POC ABG HHb (Measured) 4.9 % (0.0-5.0) 05/20/17 10:28 ABG Methemoglobin 1.2 % (0.0-3.0) 05/20/17 10:28 Michael Test Na 05/20/17 10:28 ABG Potassium 4.2 mmol/L (3.6-5.2) 05/16/17 20:42 A-a O2 Difference 28.0 mm/Hg 05/20/17 10:28 Respiratory Index 0.4 05/20/17 10:28 Hgb O2 Saturation 91.9 % (95.0-98.0) L 05/20/17 10:28 Sodium 139.0 mmol/l (132-148) 05/16/17 20:42 Chloride 96.0 mmol/L (98-107) L 05/16/17 20:42 Glucose 217 mg/dl (75-110) H 05/16/17 20:42 Lactate 1.9 mmol/L (0.7-2.1) 05/16/17 20:42 Liter Flow 3.0 05/16/17 18:37 Vent Mode Bipap 05/16/17 20:42 FiO2 21.0 % 05/20/17 10:28 Inspiratory BiPAP 16 05/16/17 20:42 Expiratory BiPAP 8 05/16/17 20:42 Crit Value Called To Ismael echevarria 05/16/17 20:42 Crit Value Called By Zonia 05/16/17 20:42 Crit Value Read Back Y 05/16/17 20:42 Blood Gas Notified Time 204405/16/17 20:42 Sodium 136 mmol/L (132-148) 05/19/17 13:51 Potassium 4.1 mmol/L (3.6-5.2) 05/19/17 13:51 Chloride 88 mmol/L (98-107) L 05/19/17 13:51 Carbon Dioxide 31 mmol/L (22-30) H 05/19/17 13:51 Anion Gap 21 (10-20) H 05/19/17 13:51 BUN 27 mg/dL (9-20) H 05/19/17 13:51 Creatinine 0.5 MG/DL (0.8-1.5) L 05/19/17 13:51 Est GFR ( Amer) > 60 05/19/17 13:51 Est GFR (Non-Af Amer) > 60 05/19/17 13:51 POC Glucose (mg/dL) 138 mg/dL (65-110) H 05/20/17 11:54 Random Glucose 284 mg/dL (75-110) H 05/19/17 13:51 Calcium 9.4 mg/dl (8.6-10.4) 05/19/17 13:51 Total Bilirubin 0.6 mg/dL (0.2-1.3) 05/16/17 17:27 AST 22 U/L (17-59) 05/16/17 17:27 ALT 38 U/L (21-72) 05/16/17 17:27 Alkaline Phosphatase 87 U/L (38-126) 05/16/17 17:27 Troponin I < 0.0120 ng/mL (0.00-0.120) 05/16/17 17:27 NT-Pro-B Natriuret Pep 100 pg/mL (0-450) 05/16/17 17:27 Total Protein 7.4 g/dL (6.3-8.3) 05/16/17 17:27 Albumin 4.2 g/dL (3.5-5.0) 05/16/17 17:27 Globulin 3.2 gm/dL (2.2-3.9) 05/16/17 17:27 Albumin/Globulin Ratio 1.3 (1.0-2.1) 05/16/17 17:27 Arterial Blood Potassium 4.2 mmol/L (3.6-5.2) 05/16/17 20:42 - Hospital Course Hospital Course: admitetd with sob, cough, con=gestion wheezing, on home o2, NOW ON MEDICATIONS AND IS FEELING WELL Discharge Exam - Head Exam Head Exam: ATRAUMATIC, NORMOCEPHALIC - Eye Exam Eye Exam: EOMI, Normal appearance, PERRL Pupil Exam: NORMAL ACCOMODATION - ENT Exam ENT Exam: Mucous Membranes Moist, Normal Exam, Normal Oropharynx, TM's Normal Bilaterally - Neck Exam Neck exam: Normal Inspection - Respiratory Exam Respiratory Exam: Decreased Breath Sounds, Rhonchi - Cardiovascular Exam Cardiovascular Exam: REGULAR RHYTHM, +S1, +S2 - GI/Abdominal Exam GI & Abdominal Exam: Normal Bowel Sounds - Rectal Exam Rectal Exam: NORMAL INSPECTION - Neurological Exam Neurological exam: Alert, CN II-XII Intact, Normal Gait, Oriented x3, Reflexes Normal - Psychiatric Exam Psychiatric exam: Normal Affect, Normal Mood - Skin Skin Exam: Intact Discharge Plan - Discharge Medications Prescriptions: Roflumilast [Daliresp] 500 mcg PO DAILY #30 tab predniSONE [Prednisone] 30 mg PO DAILY #18 tab Montelukast [Singulair] 10 mg PO DAILY #30 tab Tiotropium [Spiriva] 18 mcg INH RQ24 #30 cap - Follow Up Plan Condition: STABLE Disposition: HOME/ ROUTINE Instructions: Prednisone (By mouth), Montelukast (By mouth), Roflumilast (By mouth), COPD (Chronic Obstructive Pulmonary Disease) (DC) Additional Instructions: Please f/u with Dr. Pryor office in 1 week Please f/u with Dr. Abraham office in 1 week Pulmonory function test and sleep study at [facility] out patient - call and make appointment continue medication as per Med. Rec. Referrals: Sreekanth Abraham MD [Staff Provider] - Mike Pryor MD [Staff Provider] -
--- NOTE | 2017-06-03 14:27 | CARD ---
APPROVED REPORT EKG Measurement Heart [id number] <Conclusion> Normal sinus rhythm Normal ECG
== END 2017-05-20 18:45 | disposition home or self-care (01) | DRG 190 ==
LOC: C.ER 17:12 → C.9E 21:03 → C.6T 22:03
PROVIDERS: ADMIT Internal Medicine; ATTEND Internal Medicine
PROC: 5A09457 Assistance with Respiratory Ventilation, 24-96 Consecutive Hours, Continuous Positive Airway Pressure (ICD-10-PCS; principal; 2017-05-16)
DX: J44.1 Chronic obstructive pulmonary disease with (acute) exacerbation (principal); J18.9 Pneumonia, unspecified organism; J96.22 Acute and chronic respiratory failure with hypercapnia; J44.0 Chronic obstructive pulmonary disease with (acute) lower respiratory infection; I10 Essential (primary) hypertension; E11.9 Type 2 diabetes mellitus without complications; Z99.81 Dependence on supplemental oxygen; Z91.14 Patient's other noncompliance with medication regimen; Z87.891 Personal history of nicotine dependence